=== PATIENT | female | born 1990 | race Caucasian/White ===

== ENCOUNTER 2016-03-28 13:20 | Emergency (ER) | payer OTHER ==
[2016-03-28] MEDS ORDERED: ACETAMINOPHEN 325 MG TABLET PO ONE (14:36)
--- NOTE | 2016-03-28 14:37 | ER Document Report ---
ED Medical Screen (RME) - General Chief Complaint: Urinary Problem Stated Complaint: URINARY PROBLEM Mode of Arrival: Ambulatory Information source: Patient Notes: Patient complains of burning with urination that is constant for the past 6 months. She states she has seen her primary care doctor who said she doesn't have a UTI but she still continues to hurt. She endorses associated back pain, headaches and irregular vaginal bleeding. Denies fever, chills, nausea, vomiting , diarrhea, vaginal discharge. She reports history of "Cyst in vaginal area" and feels "pressure down there" but is unsure if the cyst came back. She has tried tylenol, ibuprofen which will go away for an hour but then return. For her headache, she has tried "tension headache" medicine but it only relieves the pain for a little bit. TRAVEL OUTSIDE OF THE [place] IN LAST 30 DAYS: No - Related Data Allergies/Adverse Reactions: Coconut * [Coconut] Allergy (Intermediate, Verified 08/23/15 22:35) HIVES/MOUTH SWELLING. Sulfa (Sulfonamide Antibiotics) Allergy (Verified 08/23/15 22:35) Past Medical History - General Last Menstrual Period: irregular - Social History Frequency of alcohol use: None Drug Abuse: None Pulmonary Medical History: Reports: Hx Asthma Past Surgical History: Reports: Hx Gynecologic Surgery - ectopic , Hx Oral Surgery, Hx Tonsillectomy - - Immunizations Immunizations up to date: Yes Hx Diphtheria, Pertussis, Tetanus Vaccination: Yes Review of Systems - Review of Systems Constitutional: See HPI Gastrointestinal: See HPI Genitourinary: See HPI Physical Exam - Vital signs Vitals: Temp Pulse Resp BP Pulse Ox 98.2 F 69 20 164/58 H 100 03/28/16 13:25 03/28/16 13:25 03/28/16 13:25 03/28/16 13:25 03/28/16 13:25 - Notes Notes: General: well-appearing, comfortable sitting in exam chair. No respiratory distress. Course - Re-evaluation Re-evalutation: 03/28/16 14:36 Patient seen and examined. Ordered urinalysis and urine hcg. Given PO tylenol. - Vital Signs Vital signs: Temp Pulse Resp BP Pulse Ox 98.2 F 69 20 164/58 H 100 03/28/16 13:25 03/28/16 13:25 03/28/16 13:25 03/28/16 13:25 03/28/16 13:25
[2016-03-28 15:36] LABS: APPEARANCE,URINE SLIGHTLY-CLOUDY; BILIRUBIN,URINE NEGATIVE (NEGATIVE); GLUCOSE, URINE NEGATIVE (NEGATIVE); KETONES,URINE NEGATIVE (NEGATIVE); LEUKOCYTE ESTERASE,URINE MODERATE (NEGATIVE); NITRITE,URINE NEGATIVE (NEGATIVE); PROTEIN,URINE NEGATIVE (NEGATIVE); UROBILINOGEN,URINE NEGATIVE mg/dL (<2.0)
[2016-03-28 18:06] VITALS: BP 137/79
[2016-03-28] MEDS ORDERED: NITROFURANTOIN MONOHYD/M-CRYST 100 MG CAPSULE PO ONE (18:22)
--- NOTE | 2016-03-28 21:18 | ER Document Report ---
ED General - General Chief Complaint: Urinary Problem Stated Complaint: URINARY PROBLEM Mode of Arrival: Ambulatory TRAVEL OUTSIDE OF THE [place] IN LAST 30 DAYS: No - HPI Patient complains to provider of: dysuria vaginal cyst Notes: Patient states ongoing dysuria and vaginal cyst. Patient states vaginal cyst ongoing for the last 7 months. Dysuria lower back pain ongoing for the last few days. Patient denies fevers chills nausea vomiting. Upon my evaluation patient is resting comfortably without any acute distress. No recent antibiotics - Related Data Allergies/Adverse Reactions: Coconut * [Coconut] Allergy (Intermediate, Verified 08/23/15 22:35) HIVES/MOUTH SWELLING. Sulfa (Sulfonamide Antibiotics) Allergy (Verified 08/23/15 22:35) Past Medical History - General Information source: Patient Last Menstrual Period: irregular - Social History Smoking Status: Current Every Day Smoker Frequency of alcohol use: None Drug Abuse: None Family History: Reviewed & Not Pertinent Patient has suicidal ideation: No Patient has homicidal ideation: No Pulmonary Medical History: Reports: Hx Asthma Past Surgical History: Reports: Hx Gynecologic Surgery - ectopic , Hx Oral Surgery, Hx Tonsillectomy - - Immunizations Immunizations up to date: Yes Hx Diphtheria, Pertussis, Tetanus Vaccination: Yes Review of Systems - Review of Systems Constitutional: No symptoms reported EENT: No symptoms reported Cardiovascular: No symptoms reported Respiratory: No symptoms reported Gastrointestinal: No symptoms reported Genitourinary: Dysuria Female Genitourinary: Other - Vaginal pain Musculoskeletal: No symptoms reported Skin: No symptoms reported Hematologic/Lymphatic: No symptoms reported Neurological/Psychological: No symptoms reported -: Yes All other systems reviewed and negative Physical Exam - Vital signs Vitals: Temp Pulse Resp BP Pulse Ox 98.2 F 69 20 164/58 H 100 03/28/16 13:25 03/28/16 13:25 03/28/16 13:25 03/28/16 13:25 03/28/16 13:25 Interpretation: Normal - General General appearance: Appears well, Alert - HEENT Head: Normocephalic, Atraumatic Eyes: Normal Pupils: PERRL - Respiratory Respiratory status: No respiratory distress Chest status: Nontender Breath sounds: Normal Chest palpation: Normal - Cardiovascular Rhythm: Regular Heart sounds: Normal auscultation Murmur: No - Abdominal Inspection: Normal Distension: No distension Bowel sounds: Normal Tenderness: Nontender Organomegaly: No organomegaly - Back Back: Normal, Nontender - Extremities General upper extremity: Normal inspection, Nontender, Normal color, Normal ROM , Normal temperature General lower extremity: Normal inspection, Nontender, Normal color, Normal ROM , Normal temperature, Normal weight bearing. No: Ofelia's sign - Neurological Neuro grossly intact: Yes Cognition: Normal Orientation: AAOx4 [place] Coma Scale Eye Opening: Spontaneous Marco Coma Scale Verbal: Oriented [place] Coma Scale Motor: Obeys Commands [place] Coma Scale Total: 15 Speech: Normal Motor strength normal: LUE, RUE, LLE, RLE Sensory: Normal - Psychological Associated symptoms: Normal affect, Normal mood - Skin Skin Temperature: Warm Skin Moisture: Dry Skin Color: Normal Course - Re-evaluation Re-evalutation: 03/29/16 02:52 Patient's lab work urinalysis is signs of urinary tract infection. Patient will be given antibiotics. Initial set up patient have a pelvic exam performed to evaluate her system of her vagina however was involved in a respiratory distress case requiring multiple critical interventions. Notified by nursing staff patient request to be discharged home. Patient deferring pelvic at this time. Patient was discharged follow-up with [facility]. - Vital Signs Vital signs: Temp Pulse Resp BP Pulse Ox 98.1 F 72 18 137/79 H 100 03/28/16 18:05 03/28/16 18:05 03/28/16 18:05 03/28/16 18:05 03/28/16 18:05 - Laboratory Laboratory results interpreted by me: 03/28/16 15:00 Urine Blood SMALL H Ur Leukocyte Esterase MODERATE H Discharge - Discharge Clinical Impression: UTI (urinary tract infection) Qualifiers: Urinary tract infection type: acute cystitis Hematuria presence: without hematuria Qualified Code(s): N30.00 - Acute cystitis without hematuria Condition: Good Disposition: HOME, SELF-CARE Instructions: Urinary Tract Infection ([facility]), Nitrofurantoin ([facility]), Ob-Clinical Assistant Doctors Additional Instructions: Follow-up with your primary care physician. Return to the ER symptoms worsen. I would highly recommend following up with your [facility] for further evaluation of your cyst. Prescriptions: Ibuprofen [Motrin 600 Mg Tablet] 600 mg PO TID #30 tablet Nitrofurantoin/Nitrofuran Mac [Macrobid 100 mg Capsule] 1 tab PO BID #14 capsule Forms: Return to Work
== END 2016-03-28 22:40 | disposition home or self-care (01) ==
LOC: ER 13:20
DX: N30.00 Acute cystitis without hematuria (principal); R39.198 Other difficulties with micturition; R30.0 Dysuria; F17.210 Nicotine dependence, cigarettes, uncomplicated
CPT/HCPCS: 81001; 81025; 87086; 99283

== ENCOUNTER 2016-07-31 15:46 | Emergency (ER) | payer OTHER ==
[2016-07-31] MEDS ORDERED: ALBUTEROL SULFATE 0.083% NEB 2.5 MG/3 ML AMPUL NEB ONE (16:21)
[2016-07-31] MEDS ORDERED: PENICILLIN G BENZATHINE 1.2 MILLION UNIT/2 ML DISP.SYRIN IM ONE (17:55)
--- NOTE | 2016-07-31 17:57 | ER Document Report ---
HPI - HPI Patient complains to provider of: sore throat Pain Level: 4 Context: Patient is a 26-year-old female presents emergency Department complaining of sore throat for the past 3 days. She states that she did have a sick contact at work who've had sore throat with irritation. She denies any fevers, chills. She admits to minimal difficulty breathing with wheezing. She states she hasn 't ever been diagnosed with asthma. She admits to dysphagia but otherwise tolerating fluids and solids without any difficulty. He Tylenol at home for pain Denies any past medical problems. Does not have a primary care physician - CARDIOVASCULAR Cardiovascular: DENIES: Chest pain - REPRODUCTIVE Reproductive: DENIES: : - DERM Skin Color: Normal Past Medical History - Social History Smoking Status: Current Every Day Smoker Chew tobacco use (# tins/day): No Frequency of alcohol use: None Drug Abuse: None Family History: Reviewed & Not Pertinent Patient has suicidal ideation: No Patient has homicidal ideation: No Pulmonary Medical History: Reports: Hx Asthma Renal/ Medical History: Denies: Hx Peritoneal Dialysis Past Surgical History: Reports: Hx Gynecologic Surgery - ectopic , Hx Oral Surgery, Hx Tonsillectomy - - Immunizations Immunizations up to date: Yes Hx Diphtheria, Pertussis, Tetanus Vaccination: Yes Vertical Provider Document - CONSTITUTIONAL Agree With Documented VS: Yes Exam Limitations: No Limitations Notes: PHYSICAL EXAM GENERAL: Alert, interacts well. HEAD: Normocephalic, atraumatic. EYES: Pupils equal, round, and reactive to light. Extraocular movements intact. ENT: Uvula midline. Airway patent. No evidence of tonsillar enlargement, peritonsillar abscess, retropharyngeal abscess. Evidence of pharyngeal erythema no evidence of exudates. NECK: Full range of motion. Supple. Trachea midline. Minimal tenderness to palpation of the submandibular lymph nodes bilaterally LUNGS: Minimal expiratory wheezes. No evidence of, rales, or rhonchi. No respiratory distress. HEART: Regular rate and rhythm. No murmurs, gallops, or rubs. ABDOMEN: Soft, nondistended, nontender. No guarding, rebound, or rigidity.. Bowel sounds present in all 4 quadrants. EXTREMITIES: Moves all 4 extremities spontaneously. No edema, radial and dorsalis pedis pulses 2/4 bilaterally. No cyanosis. NEUROLOGICAL: Alert and oriented x4. Normal speech. PSYCH: Normal affect, normal mood. SKIN: Warm, dry, normal turgor. No rashes or lesions noted. - INFECTION CONTROL TRAVEL OUTSIDE OF THE [place] IN LAST 30 DAYS: No - RESPIRATORY O2 Sat by Pulse Oximetry: 98 Course - Re-evaluation Re-evalutation: 07/31/16 19:46 Patient is a 26-year-old female is hemodynamically stable, no distress afebrile. Evidence of positive strep on rapid strep test. Patient responded well to inhaled albuterol. She opted for penicillin IM and will follow-up with primary care if her symptoms do not improve. - Vital Signs Vital signs: Temp Pulse Resp BP Pulse Ox 98.6 F 88 20 153/73 H 98 07/31/16 16:04 07/31/16 16:04 07/31/16 16:04 07/31/16 16:04 07/31/16 16:04 - Diagnostic Test Radiology reviewed: Image reviewed, Reports reviewed Discharge - Discharge Clinical Impression: Strep throat Condition: Good Disposition: HOME, SELF-CARE Instructions: Strep Throat ([facility]), Penicillins ([facility]) Prescriptions: Albuterol Sulfate [Proair HFA Inhalation Aerosol 8.5 gm MDI] 2 puff IH Q4H PRN # 1 mdi PRN Reason: Forms: Elevated Blood Pressure, Return to Work Referrals: HIPOLITO KABA MD [NO LOCAL MD] - Follow up as needed [facility] [NO [facility]AL MD] - Follow up as needed
[2016-07-31 18:44] VITALS: BP 131/88
== END 2016-07-31 18:46 | disposition home or self-care (01) ==
LOC: ER 15:46
DX: J02.0 Streptococcal pharyngitis (principal); R06.00 Dyspnea, unspecified; R06.2 Wheezing; R13.10 Dysphagia, unspecified; F17.200 Nicotine dependence, unspecified, uncomplicated
CPT/HCPCS: 99283; 87880; 71020; 70360; J0561

== ENCOUNTER 2017-08-07 12:09 | Emergency (ER) | payer MEDICAID ==
[2017-08-07 12:22] VITALS: BP 140/68
[2017-08-07] MEDS ORDERED: CEFTRIAXONE INJ 250 MG VIAL IM ONE (12:49)
[2017-08-07] MEDS ORDERED: AZITHROMYCIN 250 MG TABLET PO ONE (12:49)
[2017-08-07] MEDS ORDERED: LIDOCAINE 1% INJ-PF (10 MG/ML) 30 ML SDV INJ ONE (12:49)
--- NOTE | 2017-08-07 12:54 | ER Document Report ---
ED GI/ - General Chief Complaint: STD Exposure Stated Complaint: STD/ CHECK Time Seen by Provider: 08/07/17 12:39 Mode of Arrival: Ambulatory Information source: Patient Notes: 27-year-old female presents to ED for TD exposure and concerned that she is . She denies any vaginal discharge any symptoms but states her last menstrual period was June 30. TRAVEL OUTSIDE OF THE [place] IN LAST 30 DAYS: No - HPI Patient complains to provider of: Missed/Late menses, Other - std exposure and Quality of pain: No pain Pain Level: Denies Vaginal bleeding (Compared to normal period): None LMP: June 30, 2017 Sexual history: Active, Unprotected intercourse, STD exposure Associated symptoms: None Exacerbated by: Denies Relieved by: Denies Similar symptoms previously: No Recently seen / treated by doctor: No - Related Data Allergies/Adverse Reactions: Coconut * [Coconut] Allergy (Intermediate, Verified 08/07/17 12:10) HIVES/MOUTH SWELLING. Sulfa (Sulfonamide Antibiotics) Allergy (Verified 08/07/17 12:10) Past Medical History - General Information source: Patient - Social History Smoking Status: Current Every Day Smoker Cigarette use (# per day): Yes - Pack per day Chew tobacco use (# tins/day): No Smoking Education Provided: Yes - 4 minutes Frequency of alcohol use: None Drug Abuse: None Occupation: [employer] Lives with: Alone Family History: Reviewed & Not Pertinent Patient has suicidal ideation: No Patient has homicidal ideation: No - Past Medical History Cardiac Medical History: Reports: None Pulmonary Medical History: Reports: Hx Asthma EENT Medical History: Reports: None Neurological Medical History: Reports: None Endocrine Medical History: Reports: None Renal/ Medical History: Reports: Hx Ectopic Malignancy Medical History: Reports: None GI Medical History: Reports: None Musculoskeltal Medical History: Reports None, Reports Hx Arthritis, Reports Hx Musculoskeletal Trauma Skin Medical History: Reports None Psychiatric Medical History: Reports: None Traumatic Medical History: Reports: Hx Fractures - Arm Infectious Medical History: Reports: None Past Surgical History: Reports: Hx Oral Surgery, Hx Tonsillectomy - 2-2009 - Immunizations Immunizations up to date: Yes Hx Diphtheria, Pertussis, Tetanus Vaccination: Yes Review of Systems - Review of Systems Constitutional: No symptoms reported EENT: No symptoms reported Cardiovascular: No symptoms reported Respiratory: No symptoms reported Gastrointestinal: No symptoms reported Genitourinary: No symptoms reported Female Genitourinary: No symptoms reported Musculoskeletal: No symptoms reported Skin: No symptoms reported Hematologic/Lymphatic: No symptoms reported Neurological/Psychological: No symptoms reported Physical Exam - Vital signs Vitals: Temp Pulse Resp BP Pulse Ox 99.0 F 68 20 140/68 H 97 08/07/17 12:20 08/07/17 12:20 08/07/17 12:20 08/07/17 12:20 08/07/17 12:20 Interpretation: Normal - General General appearance: Appears well, Alert - HEENT Head: Normocephalic, Atraumatic Eyes: Normal Pupils: PERRL - Respiratory Respiratory status: No respiratory distress Chest status: Nontender Breath sounds: Normal Chest palpation: Normal - Cardiovascular Rhythm: Regular Heart sounds: Normal auscultation Murmur: No - Abdominal Inspection: Normal Distension: No distension Bowel sounds: Normal Tenderness: Nontender Organomegaly: No organomegaly - Back Back: Normal, Nontender - Extremities General upper extremity: Normal inspection, Nontender, Normal color, Normal ROM , Normal temperature General lower extremity: Normal inspection, Nontender, Normal color, Normal ROM , Normal temperature, Normal weight bearing. No: Ofelia's sign - Neurological Neuro grossly intact: Yes Cognition: Normal Orientation: AAOx4 Marco Coma Scale Eye Opening: Spontaneous [place] Coma Scale Verbal: Oriented Marco Coma Scale Motor: Obeys Commands [place] Coma Scale Total: 15 Speech: Normal Motor strength normal: LUE, RUE, LLE, RLE Sensory: Normal - Psychological Associated symptoms: Normal affect, Normal mood - Skin Skin Temperature: Warm Skin Moisture: Dry Skin Color: Normal Course - Vital Signs Vital signs: Temp Pulse Resp BP Pulse Ox 99.0 F 68 20 140/68 H 97 08/07/17 12:20 08/07/17 12:20 08/07/17 12:20 08/07/17 12:20 08/07/17 12:20 - Laboratory Laboratory results interpreted by me: 08/07/17 12:45 N.gonorrhoeae DNA (PCR) DETECTED H Discharge - Discharge Clinical Impression: STD exposure HTN (hypertension) Qualifiers: Hypertension type: unspecified Qualified Code(s): I10 - Essential (primary) hypertension Condition: Stable Disposition: HOME, SELF-CARE Instructions: Family Physicians / Practices Additional Instructions: You were seen today for exposure to STDs. You have been treated with Rocephin IM and azithromycin by mouth. You can call in 2 hours or tomorrow at [phone] for your culture results test was negative. CEPHALOSPORINS: An antibiotic of the cephalosporin class has been prescribed. This type of antibiotic covers a wide variety of infections, including those of the skin, lungs, middle ear, and urinary tract. This antibiotic is somewhat similar to the penicillin family. In rare cases , a person who is allergic to penicillin will also be allergic to this medication. If you have had a severe allergic reaction to penicillin, and have not taken this antibiotic since that time, notify your doctor. Antibiotics which cover many germs ("broad spectrum" antibiotics) are more likely to cause diarrhea or "yeast" infections. Women prone to vaginal yeast problems may suffer an attack after taking this antibiotic. In infants, oral thrush (white spots "stuck" on the cheek) or yeast diaper rash may result. See your doctor if these problems occur. Call the doctor at once if you develop hives, itching, shortness of breath , or lightheadedness. AZITHROMYCIN: Azithromycin (Zithromax) is a broad spectrum antibiotic in the same class as erythromycin. It can treat a variety of bacterial infections, but is most frequently used for respiratory infections. Azithromycin is extremely long-lasting. It accumulates in body tissues and continues to kill bacteria for many days. In order to improve absorption, Azithromycin should be taken at least one hour before or two hours after a meal. It does not have the same strong tendency to upset the stomach as erythromycin and is usually very well tolerated. Patients who have had a rash or other true allergic reactions to erythromycin should not take this medication. Call if you develop gastrointestinal distress, severe diarrhea, rash, hives, itching, or shortness of breath. FOLLOW-UP CARE: If you have been referred to a physician for follow-up care, call the physician s office for an appointment as you were instructed or within the next two days. If you experience worsening or a significant change in your symptoms, notify the physician immediately or return to the Emergency Department at any time for re-evaluation. Forms: Elevated Blood Pressure
[2017-08-07] MEDS ORDERED: AZITHROMYCIN 250 MG TABLET ONE (13:03)
[2017-08-07 13:06] LABS: BACTERIA (WET MOUNT) 3+ BACTERIA SEEN; RBCS (WET MOUNT) FEW RBCS SEEN; T.VAGINALIS (WET MOUNT) NO TRICHOMONAS SEEN; WBCS (WET MOUNT) FEW WBCS SEEN; YEAST (WET MOUNT) NO YEAST SEEN
[2017-08-07 14:31] LABS: CHLAM PCR NOT DETECTED (NOT DETECT); GON PCR DETECTED (NOT DETECT)
== END 2017-08-07 13:32 | disposition home or self-care (01) ==
LOC: ER 12:09
DX: Z20.2 Contact with and (suspected) exposure to infections with a predominantly sexual mode of transmission (principal); Z32.02 Encounter for pregnancy test, result negative; I10 Essential (primary) hypertension; J45.909 Unspecified asthma, uncomplicated; F17.210 Nicotine dependence, cigarettes, uncomplicated; Z71.6 Tobacco abuse counseling; Z91.018 Allergy to other foods; Z88.2 Allergy status to sulfonamides
CPT/HCPCS: 99406; 99283; 96372; 87086; 87210; 81025; 87088; 87186; 87491; 87591; Q0144; J3490; J0696

== ENCOUNTER 2017-08-21 15:58 | Emergency (ER) | payer SELFPAY ==
[2017-08-21] MEDS ORDERED: IPRATROPIUM/ALBUTEROL 0.5-2.5 MG/3 ML AMPUL NEB ONE (16:51)
[2017-08-21] MEDS ORDERED: NAPROXEN 250 MG TABLET PO ONE (16:51)
[2017-08-21] MEDS ORDERED: PREDNISONE 20 MG TABLET PO ONE (16:51)
--- NOTE | 2017-08-21 16:51 | ER Document Report ---
ED General - General Chief Complaint: Flank Pain Stated Complaint: DIFFICULTY BREATHING Time Seen by Provider: 08/21/17 16:38 Mode of Arrival: Ambulatory Information source: Patient Notes: 27-year-old female history of asthma smoker who states that she has been wheezing daily for the past few months presents with complaints of wheezing flank pain patient notes she fell mechanical since then she has been having some back pain, most pains on her flank only she fell forward striking her abdomen and catching herself with her hands TRAVEL OUTSIDE OF THE [place] IN LAST 30 DAYS: No - HPI Onset: Last week Onset/Duration: Persistent Quality of pain: Achy Severity: Mild Pain Level: 1 Associated symptoms: Body/muscle aches, Shortness of breath Exacerbated by: Movement, Deep breathing Relieved by: Denies Similar symptoms previously: No Recently seen / treated by doctor: No Notes: Patient notes her back hurts with range of motion deep breathing which causes her not to take a deep breath - Related Data Allergies/Adverse Reactions: Coconut * [Coconut] Allergy (Intermediate, Verified 08/21/17 15:59) HIVES/MOUTH SWELLING. Sulfa (Sulfonamide Antibiotics) Allergy (Verified 08/21/17 15:59) Past Medical History - Social History Smoking Status: Current Every Day Smoker Cigarette use (# per day): Yes Chew tobacco use (# tins/day): No Smoking Education Provided: No Frequency of alcohol use: None Drug Abuse: None Family History: Reviewed & Not Pertinent Patient has suicidal ideation: No Patient has homicidal ideation: No Pulmonary Medical History: Reports: Hx Asthma Renal/ Medical History: Reports: Hx Ectopic . Denies: Hx Peritoneal Dialysis Musculoskeltal Medical History: Reports Hx Arthritis, Reports Hx Musculoskeletal Trauma Traumatic Medical History: Reports: Hx Fractures - Arm Past Surgical History: Reports: Hx Gynecologic Surgery - etopic , Hx Oral Surgery, Hx Tonsillectomy - - Immunizations Immunizations up to date: Yes Hx Diphtheria, Pertussis, Tetanus Vaccination: Yes Review of Systems - Review of Systems Notes: REVIEW OF SYSTEMS: CONSTITUTIONAL : Denies fever, chills, or sweats. Denies recent illness. EENT: Denies eye, ear, throat, or mouth pain or symptoms. Denies nasal or sinus congestion or discharge. Denies throat, tongue, or mouth swelling or difficulty swallowing. CARDIOVASCULAR: Denies chest pain. Denies palpitations or racing or irregular heart beat. Denies ankle edema. RESPIRATORY: Wheezing shortness of breath GASTROINTESTINAL: Denies abdominal pain or distention. Denies nausea, vomiting , or diarrhea. Denies blood in vomitus, stools, or per rectum. Denies black, tarry stools. Denies constipation. GENITOURINARY: Denies difficulty urinating, painful urination, burning, frequency, blood in urine, or discharge. FEMALE GENITOURINARY: Denies vaginal bleeding, heavy or abnormal periods, irregular periods. Denies vaginal discharge or odor. MUSCULOSKELETAL: Denies back or neck pain or stiffness. Denies joint pain or swelling. SKIN: Denies rash, lesions or sores. HEMATOLOGIC : Denies easy bruising or bleeding. LYMPHATIC: Denies swollen, enlarged glands. NEUROLOGICAL: Denies confusion or altered mental status. Denies passing out or loss of consciousness. Denies dizziness or lightheadedness. Denies headache. Denies weakness or paralysis or loss of use of either side. Denies problems with gait or speech. Denies sensory loss, numbness, or tingling. Denies seizures. PSYCHIATRIC: Denies anxiety or stress. Denies depression, suicidal ideation, or homicidal ideation. ALL OTHER SYSTEMS REVIEWED AND NEGATIVE. PHYSICAL EXAMINATION: GENERAL: Morbidly obese female no acute distress HEAD: Atraumatic, normocephalic. EYES: Pupils equal round and reactive to light, extraocular movements intact, conjunctiva are normal. ENT: Nares patent, oropharynx clear without exudates. Moist mucous membranes. NECK: Normal range of motion, supple without lymphadenopathy LUNGS: Expiratory expiratory wheezing around all hester. HEART: Regular rate and rhythm without murmurs ABDOMEN: Soft, nontender, nondistended abdomen. No guarding, no rebound. No masses appreciated. Left CVA tenderness on palpation Female : deferred Musculoskeletal: Normal range of motion, no pitting or edema. No cyanosis. NEUROLOGICAL: Cranial nerves grossly intact. Normal speech, normal gait. Normal sensory, motor exams PSYCH: Normal mood, normal affect. SKIN: Warm, Dry, normal turgor, no rashes or lesions noted. Dictation was performed using [employer] voice recognition software Physical Exam - Vital signs Vitals: Temp Pulse Resp BP Pulse Ox 99.2 F 73 14 138/89 H 98 08/21/17 16:05 08/21/17 16:05 08/21/17 16:05 08/21/17 16:05 08/21/17 16:05 Course - Re-evaluation Re-evalutation: 08/21/17 16:58 Patient's presentation is most consistent with a musculoskeletal pain, patient overall looks well is in no distress he will be given breathing treatments and steroids for her back no history of diabetes 08/21/17 18:21 Patient notes her back has improved, states her son has not improved and she does not think it is musculoskeletal, renal ct ordered 08/21/17 19:47 Patient's urinalysis does note some bacteria, CT negative, will treat for possible musculoskeletal pain After performing a Medical Screening Examination, I estimate there is LOW risk for ACUTE APPENDICITIS, BOWEL OBSTRUCTION, ACUTE CHOLECYSTITIS, PERFORATED DIVERTICULITIS, INCARCERATED HERNIA, PANCREATITIS, PELVIC INFLAMMATORY DISEASE, PERFORATED ULCER, ECTOPIC , or TUBO-OVARIAN ABSCESS, thus I consider the discharge disposition reasonable. Also, there is no evidence or peritonitis , sepsis, or toxicity. I have reevaluated this patient multiple times and no significant life threatening changes are noted. The patient and I have discussed the diagnosis and risks, and we agree with discharging home with close follow-up with the understanding that symptoms and presentations can change. We also discussed returning to the Emergency Department immediately if new or worsening symptoms occur. We have discussed the symptoms which are most concerning (e.g., bloody stool, fever, changing or worsening pain, vomiting) that necessitate immediate return. - Vital Signs Vital signs: Temp Pulse Resp BP Pulse Ox 97.9 F 64 21 H 154/74 H 98 08/21/17 19:44 08/21/17 19:44 08/21/17 19:44 08/21/17 19:44 08/21/17 19:44 - Laboratory Laboratory results interpreted by me: 08/21/17 18:27 Urine Protein 30 H Urine Ketones TRACE H Urine Blood MODERATE H Urine Urobilinogen 4.0 H Ur Leukocyte Esterase LARGE H - Diagnostic Test Radiology reviewed: Image reviewed - CT renal stone study notes no acute abnormality, Reports reviewed Discharge - Discharge Clinical Impression: Pyelonephritis, Flank pain Condition: Stable Disposition: HOME, SELF-CARE Instructions: Pyelonephritis ([facility]) Additional Instructions: Follow up with your physician tomorrow for further care or return to the ED IMMEDIATELY if symptoms worsen or new concerns occur. If you cannot afford to follow up with your primary care physician a list of low cost clinics have been provided at the end of your discharge papers as well. Prescriptions: Ciprofloxacin HCl [Cipro 500 mg Tablet] 500 mg PO BID #20 tablet Naproxen 500 mg PO BID #20 tablet
[2017-08-21 18:40] LABS: AMORPHOUS SEDIMENT,URINE TRACE /HPF; APPEARANCE,URINE CLOUDY; BILIRUBIN,URINE NEGATIVE (NEGATIVE); COLOR,URINE YELLOW; GLUCOSE, URINE NEGATIVE (NEGATIVE); KETONES,URINE TRACE mg/dL (NEGATIVE); LEUKOCYTE ESTERASE,URINE LARGE (NEGATIVE); NITRITE,URINE NEGATIVE (NEGATIVE); PROTEIN,URINE 30 mg/dL (NEGATIVE); URINE SPECIFIC GRAVITY 1.031
--- NOTE | 2017-08-21 19:14 | RADIOLOGY REPORT (SQ) ---
EXAM DESCRIPTION: CT LTD RENAL STONE PROTOCOL ON COMPLETED DATE/TIME: 08/21/2017 7:02 pm REASON FOR STUDY: left flank pain COMPARISON: None. TECHNIQUE: CT scan of the abdomen and pelvis performed without intravenous or oral contrast. Images reviewed with lung, soft tissue, and bone windows. Reconstructed coronal and sagittal MPR images revi ewed. All images stored on PACS. All CT scanners at this facility use dose modulation, iterative reconstruction, and/or weight based d osing when appropriate to reduce radiation dose to as low as reasonably achievable (ALARA). [facility]: Dose Right [facility]: CareDose [facility]: Dose Right [facility]: Teradose 4D [facility]: [employer] RADIATION DOSE: CT Rad equipment meets quality standard of care and radiation dose reduction techniq ues were employed. CTDIvol: 27.2 mGy. DLP: 1759 mGy-cm.mGy. LIMITATIONS: None. FINDINGS: LOWER CHEST: No significant findings. No nodules or infiltrates. NON-CONTRASTED LIVER, SPLEEN, ADRENALS: Evaluation limited by lack of IV contrast. No identified sign ificant masses. PANCREAS: No masses. No peripancreatic inflammatory changes. GALLBLADDER: No identified stones by CT criteria. No inflammatory changes to suggest cholecystitis. RIGHT KIDNEY AND URETER: No suspicious masses. Assessment limited by lack of IV contrast. No signif icant calcifications. No hydronephrosis or hydroureter. LEFT KIDNEY AND URETER: No suspicious masses. Assessment limited by lack of IV contrast. No signifi cant calcifications. No hydronephrosis or hydroureter. AORTA AND RETROPERITONEUM: No aneurysm. No retroperitoneal masses or adenopathy. BOWEL AND PERITONEAL CAVITY: No obvious masses or inflammatory changes. No free fluid. APPENDIX: Normal. PELVIS, BLADDER, AND ABDOMINAL WALL:No abnormal masses. No free fluid. Bladder normal. BONES: No significant findings. OTHER: No other significant finding. IMPRESSION: NO SIGNIFICANT OR ACUTE PROCESS IN THE ABDOMEN OR PELVIS. COMMENT: Quality ID # [id number]: Final reports with documentation of one or more dose reduction techniques (e.g., Automated exposure control, adjustment of the mA and/or kV according to patient size, use of iterative reconstruction technique) TECHNICAL DOCUMENTATION: JOB ID: [id number] [employer]- All Rights Reserved Reading location - IP/workstation name: [email or web address]
[2017-08-21 19:46] VITALS: BP 154/74
== END 2017-08-21 19:54 | disposition home or self-care (01) ==
LOC: ER 15:58
DX: N12 Tubulo-interstitial nephritis, not specified as acute or chronic (principal); R10.9 Unspecified abdominal pain; R06.9 Unspecified abnormalities of breathing; M79.1 Myalgia; R06.02 Shortness of breath; F17.210 Nicotine dependence, cigarettes, uncomplicated; J45.909 Unspecified asthma, uncomplicated
CPT/HCPCS: 94640; 99285; 81025; 81001; 76380; J7512; J7620

== ENCOUNTER 2017-12-10 21:51 | Emergency (ER) | payer SELFPAY ==
[2017-12-11] MEDS ORDERED: IBUPROFEN 600 MG TABLET PO ONE (02:14)
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
[2017-12-11 04:56] VITALS: BP 132/80
--- NOTE | 2017-12-11 07:47 | RADIOLOGY REPORT (SQ) ---
Left ankle three view on 12/11/2017 at 3:19 AM CLINICAL INDICATION: Ankle pain after fall COMPARISON: None FINDINGS: Plantar calcaneal spur is noted. Mild soft tissue swelling is noted around the ankle. The ankle mortise is intact. There are no fractures. Visualized joints are well aligned. IMPRESSION: No acute bony abnormality.
--- NOTE | 2017-12-11 07:47 | RADIOLOGY REPORT (SQ) ---
EXAM DESCRIPTION: 3 views of the left foot December 11, 2017 CLINICAL HISTORY: 27 years, Female, fall, pain COMPARISON: None. FINDINGS: There is no acute fracture or dislocation. The bony alignment is normal. There is calcaneal enthesopathy at the plantar fascia insertion. There is no focal soft tissue swelling or joint effusion. The tarsal, metatarsal, and phalangeal bones are normal in appearance. The intertarsal, tarsometatarsal, metatarsophalangeal, and interphalangeal joints are grossly normal. IMPRESSION: No acute fracture or dislocation.
== END 2017-12-11 05:17 | disposition home or self-care (01) ==
LOC: ER 21:51
DX: S99.912A Unspecified injury of left ankle, initial encounter (principal); S99.922A Unspecified injury of left foot, initial encounter; W01.0XXA Fall on same level from slipping, tripping and stumbling without subsequent striking against object, initial encounter; Y92.009 Unspecified place in unspecified non-institutional (private) residence as the place of occurrence of the external cause; E66.01 Morbid (severe) obesity due to excess calories; F17.200 Nicotine dependence, unspecified, uncomplicated
CPT/HCPCS: 99283

== ENCOUNTER 2018-04-20 12:15 | Emergency (ER) | payer SELFPAY ==
[2018-04-20 12:22] VITALS: BP 144/88
[2018-04-20] MEDS ORDERED: LIDOCAINE 5% (700 MG) TRANSDERMAL ADH..PATCH TP ONE (12:31)
[2018-04-20] MEDS ORDERED: DIPHENHYDRAMINE HCL 50 MG CAPSULE PO ONE (12:31)
[2018-04-20] MEDS ORDERED: FAMOTIDINE 20 MG TABLET PO ONE (12:31)
[2018-04-20] MEDS ORDERED: ACETAMINOPHEN 325 MG TABLET PO ONE (12:31)
[2018-04-20] MEDS ORDERED: PREDNISONE 20 MG TABLET PO ONE (12:31)
--- NOTE | 2018-04-20 12:32 | ER Document Report ---
HPI - HPI Time Seen by Provider: 04/20/18 12:23 Onset/Duration: Persistent Quality of pain: Achy Pain Level: 4 Context: Patient presents with dysuria for the past month. Patient denies any concerns about possible sexually transmitted infection. Patient denies any vaginal bleeding or discharge. Patient also complains of low back pain that she developed after reaching into the refrigerator yesterday. Patient complains of persistent low back pain. Patient also is concerned that she may have an allergic reaction either to coconut that she accidentally ate in some chocolate yesterday or possibly to a new laundry detergent that she use. Patient complains of skin rash with pruritus for the past 3 days. Patient denies any difficulty breathing, difficulty swallowing, or facial swelling. Associated Symptoms: Other - Low back pain, dysuria, skin rash. denies: Chest pain, Nonproductive cough, Productive cough, Vomiting, Shortness of breath Exacerbated by: Movement Relieved by: Remaining still Similar symptoms previously: Yes - UTI Recently seen / treated by doctor: No - ROS ROS below otherwise negative: Yes Systems Reviewed and Negative: Yes All other systems reviewed and negative - EENT EENT: DENIES: Sore Throat, Congestion - CARDIOVASCULAR Cardiovascular: DENIES: Chest pain - RESPIRATORY Respiratory: DENIES: Coughing - GASTROINTESTINAL Gastrointestinal: DENIES: Nausea, Patient vomiting - URINARY Urinary: REPORTS: Dysuria - REPRODUCTIVE Reproductive: DENIES: : - MUSCULOSKELETAL Musculoskeletal: REPORTS: Back Pain. DENIES: Extremity pain - DERM Skin Color: Normal Skin Problems: Rash Past Medical History - General Information source: Patient - Social History Smoking Status: Current Every Day Smoker Smoking Education Provided: Yes Frequency of alcohol use: None Drug Abuse: None Occupation: fresh food manager Family History: Reviewed & Not Pertinent Pulmonary Medical History: Reports: Hx Asthma Renal/ Medical History: Reports: Hx Ectopic . Denies: Hx Peritoneal Dialysis Musculoskeletal Medical History: Reports Hx Arthritis, Reports Hx Musculoskeletal Trauma Traumatic Medical History: Reports: Hx Fractures - Arm Past Surgical History: Reports: Hx Gynecologic Surgery - etopic , Hx Oral Surgery, Hx Tonsillectomy - - Immunizations Immunizations up to date: Yes Hx Diphtheria, Pertussis, Tetanus Vaccination: Yes Vertical Provider Document - CONSTITUTIONAL Agree With Documented VS: Yes Exam Limitations: No Limitations General Appearance: WD/WN, No Apparent Distress - INFECTION CONTROL TRAVEL OUTSIDE OF THE [place] IN LAST 30 DAYS: No - HEENT HEENT: Atraumatic, Normal ENT Exam, Normocephalic Notes: No angioedema, no potential airway compromise - NECK Neck: Normal Inspection, Supple. negative: Lymphadenopathy-Left, Lymphadenopathy-Right - RESPIRATORY Respiratory: Breath Sounds Normal, No Respiratory Distress, Chest Non-Tender - CARDIOVASCULAR Cardiovascular: Regular Rate, Regular Rhythm, No Murmur - GI/ABDOMEN Gastrointestinal: Abdomen Soft - BACK Back: Normal Inspection. negative: CVA Tenderness-Right, CVA Tenderness-Left Notes: Lumbar paraspinal tenderness - MUSCULOSKELETAL/EXTREMETIES Musculoskeletal/Extremeties: MAMARILEE CASEY - NEURO Level of Consciousness: Awake, Alert, Appropriate Motor/Sensory: No Motor Deficit - DERM Integumentary: Warm, Dry, Rash - Scattered erythematous macular rash to trunk and extremities Course - Re-evaluation Re-evalutation: 04/20/18 Patient with dysuria symptoms for the past month, no concern for pyelonephritis at this time. Patient has reproducible lumbar paraspinal tenderness, no CVA tenderness. The patient presents with low back pain without signs of spinal cord compression, cauda equina syndrome, infection, aneurysm, or other serious etiology. The patient is neurologically intact. Given the extremely risk of these diagnoses further testing and evaluation for these possibilities does not appear to be indicated at this time. Patient has been instructed to return if the symptoms worsen or change in any way. - Vital Signs Vital signs: Temp Pulse Resp BP Pulse Ox 98.1 F 84 20 144/88 H 97 04/20/18 12:20 04/20/18 12:20 04/20/18 12:20 04/20/18 12:20 04/20/18 12:20 - Laboratory Laboratory results interpreted by me: 04/20/18 13:55 Labs- Entire Visit 04/20/18 12:51 Urine Color YELLOW Urine Appearance SLIGHTLY-CLOUDY Urine pH 5.0 Ur Specific [place] 1.019 Urine Protein NEGATIVE Urine Glucose (UA) NEGATIVE Urine Ketones TRACE H Urine Blood NEGATIVE Urine Nitrite NEGATIVE Urine Bilirubin NEGATIVE Urine Urobilinogen NEGATIVE Ur Leukocyte Esterase TRACE H Urine WBC (Auto) 14 Urine RBC (Auto) 2 Squamous Epi Cells Auto 8 Urine Mucus (Auto) OCC Urine Ascorbic Acid NEGATIVE Urine HCG, Qual NEGATIVE Discharge - Discharge Clinical Impression: Allergic reaction Qualifiers: Encounter type: initial encounter Qualified Code(s): T78.40XA - Allergy, unspecified, initial encounter Low back pain Qualifiers: Chronicity: acute Back pain laterality: bilateral Sciatica presence: without sciatica Qualified Code(s): M54.5 - Low back pain UTI (urinary tract infection) Qualifiers: Urinary tract infection type: site unspecified Hematuria presence: without hematuria Qualified Code(s): N39.0 - Urinary tract infection, site not specified Condition: Stable Disposition: HOME, SELF-CARE Instructions: Acute Allergic Reaction ([facility]), Cephalexin ([facility]), Low Back Pain ([facility]), Steroid Medication, Urinary Tract Infection ([facility]) Additional Instructions: Return immediately for any new or worsening symptoms Followup with your primary care provider, call tomorrow to make a followup appointment Prescriptions: Cephalexin Monohydrate [Keflex 500 mg Capsule] 500 mg PO BID 5 Days capsule Cyclobenzaprine HCl [Flexeril 10 Mg Tablet] 10 mg PO TID #15 tablet Famotidine [Pepcid 20 mg Tablet] 20 mg PO BID #12 tablet Prednisone [Deltasone 10 mg Tablet] 10 mg PO ASDIR PRN #21 tablet PRN Reason: Forms: Return to Work Referrals: [facility] [Provider Group] - Follow up as needed [facility] [Provider Group] - Follow up as needed
[2018-04-20 13:11] LABS: APPEARANCE,URINE SLIGHTLY-CLOUDY; BILIRUBIN,URINE NEGATIVE (NEGATIVE); COLOR,URINE YELLOW; GLUCOSE, URINE NEGATIVE (NEGATIVE); KETONES,URINE TRACE mg/dL (NEGATIVE); LEUKOCYTE ESTERASE,URINE TRACE (NEGATIVE); NITRITE,URINE NEGATIVE (NEGATIVE); PROTEIN,URINE NEGATIVE (NEGATIVE); URINE SPECIFIC GRAVITY 1.019; UROBILINOGEN,URINE NEGATIVE mg/dL (<2.0)
[2018-04-20] MEDS ORDERED: CEPHALEXIN 500 MG CAPSULE PO ONE (13:55)
[2018-04-20] MEDS ORDERED: HYDROCODONE/ACETAMINOPHEN 5-325 MG TABLET PO ONE (13:59)
[2018-04-20 14:38] LABS: CHLAM PCR NOT DETECTED (NOT DETECT); GON PCR NOT DETECTED (NOT DETECT)
== END 2018-04-20 14:30 | disposition home or self-care (01) ==
LOC: ER 12:15
DX: T78.40XA Allergy, unspecified, initial encounter (principal); N39.0 Urinary tract infection, site not specified; M54.5 Low back pain; R30.0 Dysuria; R21 Rash and other nonspecific skin eruption; F17.200 Nicotine dependence, unspecified, uncomplicated; J45.909 Unspecified asthma, uncomplicated
CPT/HCPCS: 99283; 87086; 81025; 81001; 87491; 87591; J7512

== ENCOUNTER 2018-12-15 09:54 | Emergency (ER) | payer SELFPAY ==
--- NOTE | 2018-12-15 10:48 | ER Document Report ---
HPI - HPI Time Seen by Provider: 12/15/18 10:11 Pain Level: 4 Notes: Patient is an otherwise healthy 28-year-old female presenting with concern for possible urinary tract infection or STDs. Patient reports she had sexual intercourse last night with a new partner. She states he did wear a condom but it slipped off. She reports this morning she woke up with dysuria. She denies any pelvic pain or abdominal pain. She denies any abnormal vaginal discharge. She also reports on her way into the hospital she got out of her car and twisted her right ankle. - CONSTITUTIONAL Constitutional: DENIES: Fever, Chills - REPRODUCTIVE Reproductive: DENIES: : - MUSCULOSKELETAL Musculoskeletal: REPORTS: Extremity pain Past Medical History - General Information source: Patient - Social History Smoking Status: Current Every Day Smoker Frequency of alcohol use: None Drug Abuse: None Family History: Reviewed & Not Pertinent Patient has suicidal ideation: No Patient has homicidal ideation: No Pulmonary Medical History: Reports: Hx Asthma Renal/ Medical History: Reports: Hx Ectopic . Denies: Hx Peritoneal Dialysis Musculoskeletal Medical History: Reports Hx Arthritis, Reports Hx Musculoskeletal Trauma Traumatic Medical History: Reports: Hx Fractures - Arm Past Surgical History: Reports: Hx Gynecologic Surgery - etopic , Hx Oral Surgery, Hx Tonsillectomy - - Immunizations Immunizations up to date: Yes Hx Diphtheria, Pertussis, Tetanus Vaccination: Yes Vertical Provider Document - CONSTITUTIONAL Notes: PHYSICAL EXAMINATION: GENERAL: Well-appearing, well-nourished and in no acute distress. HEAD: Atraumatic, normocephalic. EYES: Pupils equal round extraocular movements intact, conjunctiva are normal. ENT: Nares patent NECK: Normal range of motion LUNGS: No respiratory distress Abdomen: Abdomen soft, nontender without guarding or rebound. No CVA tenderness. Musculoskeletal: Normal range of motion NEUROLOGICAL: Normal speech, normal gait. PSYCH: Normal mood, normal affect. SKIN: Warm, Dry, normal turgor, no rashes or lesions noted. - INFECTION CONTROL TRAVEL OUTSIDE OF THE [place] IN LAST 30 DAYS: No Course - Re-evaluation Re-evalutation: Urinalysis consistent with UTI. Patient will be started on appropriate antibiotics for this. Chlamydia and gonorrhea pending. Patient will be given prophylactic treatment for both of these as she is requesting. Patient given ED return precautions. Patient encouraged to follow-up with health department. The patient's emergency department workup and current diagnosis were explained to the patient and or family. Follow-up instructions were provided. Medications if prescribed were discussed. Instructions for when to return to the emergency department including specific worrisome symptoms were discussed with the patient and/or family. - Vital Signs Vital signs: Temp Pulse Resp BP Pulse Ox 98 F 73 20 137/68 H 96 12/15/18 10:07 12/15/18 10:12/15/18 10:07 12/15/18 10:12/15/18 10:07 Discharge - Discharge Clinical Impression: Dysuria, Cystitis Condition: Stable Disposition: HOME, SELF-CARE Additional Instructions: Your urine shows findings consistent with a urinary tract infection. Please take all the antibiotics as directed even if your symptoms have improved. Please follow-up with your primary care physician as needed. Return to emergency room if you develop fever >101F, persistent vomiting, become lethargic, have severe pain in your sides, or any other symptoms that are concerning to you. You have also been treated prophylactically for possible exposure to chlamydia or gonorrhea. Please refrain from any unprotected sexual intercourse for 7 to 10 days. Our culture nurse will notify you if your testing was positive. Prescriptions: Cephalexin [Cephalexin 500 MG Tablet] 1 tab PO BID #14 tablet
--- NOTE | 2018-12-15 11:16 | RADIOLOGY REPORT (SQ) ---
EXAM DESCRIPTION: ANKLE RIGHT COMPLETE COMPLETED DATE/TIME: 12/15/2018 10:55 am REASON FOR STUDY: Rolled ankle COMPARISON: 2012. NUMBER OF VIEWS: Three views. TECHNIQUE: AP, lateral, and oblique radiographic images acquired of the right ankle. LIMITATIONS: None. FINDINGS: MINERALIZATION: Normal. BONES: Plantar calcaneal bone spur. Otherwise, no acute fracture or bony abnormality seen. JOINTS: No effusions. SOFT TISSUES: No soft tissue swelling. No foreign body. OTHER: No other significant finding. IMPRESSION: Plantar calcaneal bone spur. Otherwise, normal right ankle. TECHNICAL DOCUMENTATION: JOB ID: [id number] [id number] [employer]- All Rights Reserved Reading location - IP/workstation name: [email or web address]
[2018-12-15 11:17] LABS: EPITHELIALS (WET MOUNT) 3+ EPITHELIALS SEEN; RBCS (WET MOUNT) 4+ RBCS SEEN; T.VAGINALIS (WET MOUNT) NO TRICHOMONAS SEEN; WBCS (WET MOUNT) FEW WBCS SEEN; YEAST (WET MOUNT) NO YEAST SEEN
[2018-12-15 11:21] LABS: APPEARANCE,URINE SLIGHTLY-CLOUDY; BILIRUBIN,URINE NEGATIVE (NEGATIVE); COLOR,URINE AMBER; GLUCOSE, URINE NEGATIVE (NEGATIVE); KETONES,URINE NEGATIVE (NEGATIVE); LEUKOCYTE ESTERASE,URINE TRACE (NEGATIVE); NITRITE,URINE NEGATIVE (NEGATIVE); PROTEIN,URINE 100 mg/dL (NEGATIVE); UROBILINOGEN,URINE NEGATIVE mg/dL (<2.0)
[2018-12-15] MEDS ORDERED: LIDOCAINE 1% INJ-PF (10 MG/ML) 30 ML SDV IM ONE (11:52)
[2018-12-15] MEDS ORDERED: CEFTRIAXONE INJ 250 MG VIAL IM ONE (11:52)
[2018-12-15] MEDS ORDERED: AZITHROMYCIN 250 MG TABLET PO ONE (11:52)
[2018-12-15 12:13] VITALS: BP 124/62
[2018-12-15 12:40] LABS: CHLAM PCR DETECTED (NOT DETECT)
== END 2018-12-15 12:13 | disposition home or self-care (01) ==
LOC: ER 09:54
DX: N30.90 Cystitis, unspecified without hematuria (principal); Z20.2 Contact with and (suspected) exposure to infections with a predominantly sexual mode of transmission; R30.0 Dysuria; R52 Pain, unspecified; X50.0XXA Overexertion from strenuous movement or load, initial encounter; Y93.89 Activity, other specified; Y92.481 Parking lot as the place of occurrence of the external cause; J45.909 Unspecified asthma, uncomplicated; F17.200 Nicotine dependence, unspecified, uncomplicated
CPT/HCPCS: 87210; 81001; 87491; 87591; 73610; J3490; J0696; 96374; 96375; 99283

== ENCOUNTER 2019-05-28 23:40 | Emergency (ER) | payer SELFPAY ==
[2019-05-28 23:47] VITALS: BP 150/85
--- NOTE | 2019-05-29 00:02 | ER Document Report ---
ED Medical Screen (RME) - General Chief Complaint: Low Back Pain Stated Complaint: LOWER BACK PAIN, RIGHT FLANK PAIN Time Seen by Provider: 05/28/19 23:56 Notes: Patient is a 28-year-old female who presents to the emergency department with a chief complaint of bilateral flank pain, but mostly on the right. Patient's pain started about 3 to 4 days ago. Patient does admit that she is more than 20 days late on her menstrual cycle. She also has abdominal pain to her bilateral sides of her abdomen. Exam: Bilateral CVA tenderness. I have greeted and performed a rapid initial assessment of this patient. A comprehensive ED assessment and evaluation of the patient, analysis of test results and completion of medical decision making process will be conducted by an additional ED providers. TRAVEL OUTSIDE OF THE [place] IN LAST 30 DAYS: No - Related Data Allergies/Adverse Reactions: Coconut * [Coconut] Allergy (Intermediate, Verified 04/20/18 12:18) HIVES/MOUTH SWELLING. Sulfa (Sulfonamide Antibiotics) Allergy (Verified 04/20/18 12:18) Past Medical History Pulmonary Medical History: Reports: Hx Asthma Renal/ Medical History: Reports: Hx Ectopic . Denies: Hx Peritoneal Dialysis Musculoskeltal Medical History: Reports Hx Arthritis, Reports Hx Musculoskeletal Trauma Traumatic Medical History: Reports: Hx Fractures - Arm Past Surgical History: Reports: Hx Gynecologic Surgery - etopic , Hx Oral Surgery, Hx Tonsillectomy - - Immunizations Immunizations up to date: Yes Hx Diphtheria, Pertussis, Tetanus Vaccination: Yes Physical Exam - Vital signs Vitals: Temp Pulse Resp BP Pulse Ox 97.9 F 86 16 150/85 H 98 05/28/19 23:45 05/28/19 23:45 05/28/19 23:45 05/28/19 23:45 05/28/19 23:45 Course - Vital Signs Vital signs: Temp Pulse Resp BP Pulse Ox 97.9 F 86 16 150/85 H 98 05/28/19 23:45 05/28/19 23:45 05/28/19 23:45 05/28/19 23:45 05/28/19 23:45
[2019-05-29 00:28] LABS: APPEARANCE,URINE CLOUDY; BILIRUBIN,URINE NEGATIVE (NEGATIVE); COLOR,URINE AMBER; GLUCOSE, URINE NEGATIVE (NEGATIVE); KETONES,URINE TRACE mg/dL (NEGATIVE); LEUKOCYTE ESTERASE,URINE LARGE (NEGATIVE); NITRITE,URINE NEGATIVE (NEGATIVE); PROTEIN,URINE 30 mg/dL (NEGATIVE); URINE SPECIFIC GRAVITY 1.031
--- NOTE | 2019-05-29 00:29 | ER Document Report ---
ED General - General Chief Complaint: Flank Pain Stated Complaint: LOWER BACK PAIN, RIGHT FLANK PAIN Time Seen by Provider: 05/28/19 23:56 Mode of Arrival: Ambulatory Information source: Patient Notes: 28-year-old female presents emergency department with complaints of bilateral flank pain for the past 3 to 4 days. She reports today it was worse. She denies fever vomiting diarrhea. She reports she is eating drinking as normal. She reports in fact has been eating more. She denies urinary frequency. Denies pain with void. Denies vaginal discharge denies vaginal bleeding. Patient re ports that she is approximately 20 days late for her menses. TRAVEL OUTSIDE OF THE [place] IN LAST 30 DAYS: No - HPI Onset: Other Onset/Duration: Persistent Quality of pain: Achy Associated symptoms: None Exacerbated by: Denies Relieved by: Denies Similar symptoms previously: No Recently seen / treated by doctor: No - Related Data Allergies/Adverse Reactions: Coconut * [Coconut] Allergy (Intermediate, Verified 04/20/18 12:18) HIVES/MOUTH SWELLING. Sulfa (Sulfonamide Antibiotics) Allergy (Verified 04/20/18 12:18) Past Medical History - General Information source: Patient Last Menstrual Period: 20 days late - Social History Smoking Status: Current Every Day Smoker Chew tobacco use (# tins/day): No Frequency of alcohol use: None Drug Abuse: None Family History: Reviewed & Not Pertinent Patient has suicidal ideation: No Patient has homicidal ideation: No Pulmonary Medical History: Reports: Hx Asthma Renal/ Medical History: Reports: Hx Ectopic . Denies: Hx Peritoneal Dialysis Musculoskeletal Medical History: Reports Hx Arthritis, Reports Hx Musculoskeletal Trauma Traumatic Medical History: Reports: Hx Fractures - Arm Past Surgical History: Reports: Hx Gynecologic Surgery - etopic , Hx Oral Surgery, Hx Tonsillectomy - -2009 - Immunizations Immunizations up to date: Yes Hx Diphtheria, Pertussis, Tetanus Vaccination: Yes Review of Systems - Review of Systems Notes: Review HPI for review of systems., All other systems negative Physical Exam - Vital signs Vitals: Temp Pulse Resp BP Pulse Ox 97.9 F 86 16 150/85 H 98 05/28/19 23:45 05/28/19 23:45 05/28/19 23:45 05/28/19 23:45 05/28/19 23:45 - Notes Notes: PHYSICAL EXAMINATION: GENERAL: Well-appearing and in no acute distress HEAD: Atraumatic, normocephalic. EYES: Pupils equal round and reactive to light, extraocular movements intact, sclera anicteric, conjunctiva are normal. ENT: nares patent, oropharynx clear without exudates. Moist mucous membranes. NECK: Normal range of motion, supple without lymphadenopathy LUNGS: CTAB and equal. No wheezes rales or rhonchi. HEART: Regular rate and rhythm without murmurs ABDOMEN: Soft, RLQ tenderness. No guarding, no rebound, Morbidly obese BACK: C/O low back pain, no c/o pain with palpation to cynthia CVA EXTREMITIES: Normal range of motion, NEUROLOGICAL: Cranial nerves grossly intact. Normal sensory/motor exams. PSYCH: Normal mood, normal affect. SKIN: Warm, Dry, normal turgor, no rashes or lesions noted Course - Re-evaluation Re-evalutation: 05/29/19 01:18 28-year-old female presents emergency department with complaints of bilateral flank pain. Upon assessment patient is complaining of lower back pain. She reports the right side hurts more so than left. She also reports the pain radiates to her right lower quad. Denies fever vomiting diarrhea. Reports she is 20 days late for her menses. She reports her appetite has increased. Labs unremarkable. CT was negative for kidney stones. Patient instructed on all results. Instructed on UTI. Instructed on Macrobid Tylenol Motrin for pain push fluids. She was also instructed to return for worsening symptoms fever concerns. She verbalized understanding to all instructions. Abdomen/Pelvis CT 05/29/19 01:45 IMPRESSION: No acute intra-abdominal/pelvic process TECHNICAL DOCUMENTATION: Quality ID # 436: Final reports with documentation of one or more dose reduction techniques (e.g., Automated exposure control, adjustment of the mA and/or kV according to patient size, use of iterative reconstruction technique) copyright 2011 [employer]- All Rights Reserved Laboratory 05/28/19 05/29/19 05/29/19 23:58 00:36 00:36 WBC 9.2 RBC 4.71 Hgb 14.6 Hct 41.4 MCV 88 MCH 31.1 MCHC 35.3 RDW 12.4 Plt Count 284 Lymph % (Auto) 36.5 Mobile % (Auto) 4.9 Eos % (Auto) 3.0 Baso % (Auto) 0.5 Absolute Neuts (auto) 5.0 Absolute Lymphs (auto) 3.3 Absolute Monos (auto) 0.4 Absolute Eos (auto) 0.3 Absolute Basos (auto) 0.0 Seg Neutrophils % 55.1 Serum HCG, Qual NEGATIVE Urine Color JEFF Urine Appearance CLOUDY Urine pH 5.0 Ur Specific [place] 1.031 Urine Protein 30 H Urine Glucose (UA) NEGATIVE Urine Ketones TRACE H Urine Blood LARGE H Urine Nitrite NEGATIVE Urine Bilirubin NEGATIVE Urine Urobilinogen 2.0 H Ur Leukocyte Esterase LARGE H Urine WBC (Auto) >182 Urine RBC (Auto) 94 U Hyaline Cast (Auto) 3 Urine Bacteria (Auto) 3+ Urine WBC Clumps FEW Squamous Epi Cells Auto 8 Urine Mucus (Auto) MOD Urine Ascorbic Acid NEGATIVE 05/29/19 03:08 - Vital Signs Vital signs: Temp Pulse Resp BP Pulse Ox 97.9 F 86 16 150/85 H 98 05/28/19 23:45 05/28/19 23:45 05/28/19 23:45 05/28/19 23:45 05/28/19 23:45 - Laboratory Result Diagrams: 05/29/19 00:36 05/29/19 00:36 Laboratory results interpreted by me: 05/28/19 23:58 Urine Protein 30 H Urine Ketones TRACE H Urine Blood LARGE H Urine Urobilinogen 2.0 H Ur Leukocyte Esterase LARGE H - Diagnostic Test Radiology reviewed: Image reviewed, Reports reviewed Discharge - Discharge Clinical Impression: Flank pain UTI (urinary tract infection) Qualifiers: Urinary tract infection type: site unspecified Hematuria presence: with hematuria Qualified Code(s): N39.0 - Urinary tract infection, site not specified Condition: Stable Disposition: HOME, SELF-CARE Instructions: Nitrofurantoin ([facility]), Urinary Tract Infection ([facility]) Additional Instructions: *You have been evaluated for flank pain, UTI *Take medication as prescribed *Push fluids, monitor your temperature *Follow up with your primary care provider within one week for recheck *Take tylenol as indicated for pain *Return to ED for worsening condition, changes, needs, fever, increased pain, concerns Monitor your blood pressure. Your blood pressure was elevated today. This may be because you were anxious, in pain or because you need medication. It is important to follow up with your primary care provider for full evaluation. Prescriptions: Nitrofurantoin Monohyd/M-Cryst [Macrobid 100 mg Capsule] 100 mg PO BID #20 cap Forms: Elevated Blood Pressure
[2019-05-29 00:44] LABS: ABSOLUTE EOSINOPHILS # (AUTO) 0.3 10^3/uL (0.0-0.6); ABSOLUTE LYMPHOCYTES (AUTO) 3.3 10^3/uL (0.5-4.7); ABSOLUTE MONOCYTES (AUTO) 0.4 10^3/uL (0.1-1.4); BASOPHILS % (AUTO) 0.5 % (0-2); HEMATOCRIT 41.4 % (36.0-47.0); HEMOGLOBIN 14.6 g/dL (12.0-15.5); LYMPHOCYTES % (AUTO) 36.5 % (13-45); MEAN CORPUSCULAR HEMOGLOBIN 31.1 pg (27.0-33.4); MEAN CORPUSCULAR HGB CONC 35.3 g/dL (32.0-36.0); MEAN CORPUSCULAR VOLUME 88 fl (80-97); MONOCYTES % (AUTO) 4.9 % (3-13); PLATELET COUNT 284 10^3/uL (150-450); RED BLOOD COUNT 4.71 10^6/uL (3.72-5.28); RED CELL DISTRIBUTION WIDTH 12.4 % (11.5-14.0); SEGMENTED NEUTROPHILS % (AUTO) 55.1 % (42-78); TOTAL CELLS COUNTED % (AUTO) 100 %; WHITE BLOOD COUNT 9.2 10^3/uL (4.0-10.5)
[2019-05-29 01:04] LABS: ALBUMIN 4.1 g/dL (3.5-5.0); ALKALINE PHOSPHATASE 72 U/L (38-126); ANION GAP 10 (5-19); ASPARTATE AMINO TRANSFERASE 20 U/L (14-36); BILIRUBIN,DIRECT 0.1 mg/dL (0.0-0.4); BLOOD UREA NITROGEN 19 mg/dL (7-20); CALCIUM 9.5 mg/dL (8.4-10.2); CARBON DIOXIDE 26 mmol/L (22-30); CHLORIDE 103 mmol/L (98-107); GLUCOSE 92 mg/dL (75-110); POTASSIUM 4.1 mmol/L (3.6-5.0); TOTAL PROTEIN 7.4 g/dL (6.3-8.2)
--- NOTE | 2019-05-29 02:59 | RADIOLOGY REPORT (SQ) ---
EXAM DESCRIPTION: CT ABDOMEN PELVIS WITHOUT IV CONTRAST COMPLETED DATE/TME: 05/29/2019 01:45 CLINICAL HISTORY: 28 years, Female, Bilat flank pain hx kidney stones, hcg neg. COMPARISON: 06/21/2017 CT TECHNIQUE: 422 Images stored on PACS. All CT scanners at this facility use dose modulation, iterative reconstruction, and/or weight based dosing when appropriate to reduce radiation dose to as low as reasonably achievable (ALARA). [facility]: Dose Right [facility]: CareDose [facility]: Dose Right [facility]: Teradose 4D [facility]: [employer] LIMITATIONS: None. FINDINGS: The visualized lung bases are unremarkable. Osseous structures are grossly intact. The liver, spleen, adrenal glands, pancreas, kidneys are unremarkable. The gallbladder is present. There is no evidence for bowel obstruction. No free air or free fluid. Appendix is not well seen. No pericecal inflammation. Negative for urinary tract calculus or hydronephrosis IMPRESSION: No acute intra-abdominal/pelvic process TECHNICAL DOCUMENTATION: Quality ID # 436: Final reports with documentation of one or more dose reduction techniques (e.g., Automated exposure control, adjustment of the mA and/or kV according to patient size, use of iterative reconstruction technique) copyright 2010 [employer]- All Rights Reserved
[2019-05-29] MEDS ORDERED: NITROFURANTOIN MONOHYD/M-CRYST 100 MG CAPSULE PO ONE (03:03)
[2019-05-29] MEDS ORDERED: IBUPROFEN 800 MG TABLET PO ONE (03:08)
== END 2019-05-29 03:15 | disposition home or self-care (01) ==
LOC: ER 23:40
DX: N39.0 Urinary tract infection, site not specified (principal); R31.9 Hematuria, unspecified; M54.5 Low back pain; R10.9 Unspecified abdominal pain; R10.813 Right lower quadrant abdominal tenderness; N92.6 Irregular menstruation, unspecified; F17.200 Nicotine dependence, unspecified, uncomplicated; J45.909 Unspecified asthma, uncomplicated; Z91.018 Allergy to other foods; Z88.2 Allergy status to sulfonamides
CPT/HCPCS: 99284; 36415; 84702; 83690; 84703; 85025; 80053; 81001; 74176; J8499

== ENCOUNTER 2019-09-01 18:39 | Emergency (ER) | payer SELFPAY ==
--- NOTE | 2019-09-01 18:55 | ER Document Report ---
HPI - HPI Patient complains to provider of: Urinary frequency and burning Time Seen by Provider: 09/01/19 18:54 Onset: Just prior to arrival Associated Symptoms: None Exacerbated by: Denies Relieved by: Denies - REPRODUCTIVE Reproductive: DENIES: : Past Medical History - General Information source: Patient - Social History Smoking Status: Current Every Day Smoker Cigarette use (# per day): No Chew tobacco use (# tins/day): No Smoking Education Provided: No Frequency of alcohol use: None Drug Abuse: None Family History: Reviewed & Not Pertinent Pulmonary Medical History: Reports: Hx Asthma Renal/ Medical History: Reports: Hx Ectopic . Denies: Hx Peritoneal Dialysis Musculoskeletal Medical History: Reports Hx Arthritis, Reports Hx Musculoskeletal Trauma Traumatic Medical History: Reports: Hx Fractures - Arm Past Surgical History: Reports: Hx Gynecologic Surgery - etopic , Hx Oral Surgery, Hx Tonsillectomy - - Immunizations Immunizations up to date: Yes Hx Diphtheria, Pertussis, Tetanus Vaccination: Yes Vertical Provider Document - CONSTITUTIONAL Agree With Documented VS: Yes - INFECTION CONTROL TRAVEL OUTSIDE OF THE [place] IN LAST 30 DAYS: No - HEENT HEENT: Atraumatic, Conjuctival Injection, Normocephalic, PERRLA - NECK Neck: Normal Inspection - RESPIRATORY Respiratory: Breath Sounds Normal, No Respiratory Distress - CARDIOVASCULAR Cardiovascular: Regular Rate, Regular Rhythm - GI/ABDOMEN Gastrointestinal: Abdomen Soft, Abdomen Non-Tender - REPRODUCTIVE Female Genitalia: Normal Inspection Course - Re-evaluation Re-evalutation: 09/01/19 19:24 No nausea no vomiting patient is able to hold down p.o. food and fluid no CVA tenderness - Vital Signs Vital signs: Temp Pulse Resp BP Pulse Ox 98.5 F 88 20 104/75 97 09/01/19 18:45 09/01/19 18:45 09/01/19 18:45 09/01/19 18:45 09/01/19 18:45 - Laboratory Laboratory results interpreted by me: 09/01/19 19:24 Labs- All tests 24 hr 09/01/19 19:00 Urine Color YELLOW Urine Appearance CLOUDY Urine pH 5.0 Ur Specific [place] 1.018 Urine Protein 100 H Urine Glucose (UA) NEGATIVE Urine Ketones NEGATIVE Urine Blood LARGE H Urine Nitrite NEGATIVE Urine Bilirubin NEGATIVE Urine Urobilinogen NEGATIVE Ur Leukocyte Esterase LARGE H Urine WBC (Auto) >182 Urine RBC (Auto) >182 Urine Bacteria (Auto) 1+ Squamous Epi Cells Auto 7 Urine Mucus (Auto) RARE Urine Ascorbic Acid NEGATIVE Urine HCG, Qual NEGATIVE Discharge - Discharge Clinical Impression: UTI (urinary tract infection) Qualifiers: Urinary tract infection type: acute pyelonephritis Qualified Code(s): N10 - Acute pyelonephritis Disposition: HOME, SELF-CARE Instructions: Urinary Anesthetic Agent ([facility]), Urinary Tract Infection ([facility]) Prescriptions: Amoxicillin/Potassium Clav [Augmentin 875-125 Tablet] 1 tab PO Q12 #20 tablet Phenazopyridine HCl [Pyridium 200 mg Tablet] 200 mg PO TID #15 tablet
[2019-09-01 19:07] LABS: APPEARANCE,URINE CLOUDY; BILIRUBIN,URINE NEGATIVE (NEGATIVE); COLOR,URINE YELLOW; GLUCOSE, URINE NEGATIVE (NEGATIVE); KETONES,URINE NEGATIVE (NEGATIVE); LEUKOCYTE ESTERASE,URINE LARGE (NEGATIVE); NITRITE,URINE NEGATIVE (NEGATIVE); PROTEIN,URINE 100 mg/dL (NEGATIVE); URINE SPECIFIC GRAVITY 1.018; UROBILINOGEN,URINE NEGATIVE mg/dL (<2.0)
[2019-09-01] MEDS ORDERED: LIDOCAINE 1% INJ-PF (10 MG/ML) 30 ML SDV NEB ONE (19:23)
[2019-09-01] MEDS ORDERED: CEFTRIAXONE INJ 1000 MG VIAL IM ONE (19:23)
[2019-09-01] MEDS ORDERED: PHENAZOPYRIDINE HCL 200 MG TABLET PO ONE (19:23)
[2019-09-01 21:11] VITALS: BP 161/91
== END 2019-09-01 20:30 | disposition home or self-care (01) ==
LOC: ER 18:39
DX: N10 Acute pyelonephritis (principal); F17.200 Nicotine dependence, unspecified, uncomplicated; J45.909 Unspecified asthma, uncomplicated
CPT/HCPCS: 94640; 99283; 96372; 81025; 81001; J3490 ×2; J0696

== ENCOUNTER 2019-10-31 18:46 | Emergency (ER) | payer SELFPAY ==
--- NOTE | 2019-10-31 19:40 | ER Document Report ---
ED Medical Screen (RME) - General Chief Complaint: Nausea Stated Complaint: NAUSEA Notes: Patient is a 29-year-old white female with no reported past medical history who presents to the emergency department the chief complaint of runny nose and shortness of breath that began a couple days ago. States this been associated with some nausea and one episode of vomiting. States the nausea is the worst. She is unsure of her last normal menstrual cycle. States that her boyfriend told her that his grandmother was positive for COVID-19. She is unsure if the boyfriend has been around the grandmother or not. She denies any known fevers. Reports she felt hot yesterday but states she did not have a thermometer to record her temperature. I have treated and performed a rapid initial assessment of this patient. A comprehensive ED assessment and evaluation of the patient, analysis of test results and completion of medical decision making process will be conducted by additional ED providers. PHYSICAL EXAMINATION: GENERAL: Well-appearing, well-nourished and in no acute distress. A&Ox4. Answers questions appropriately. TRAVEL OUTSIDE OF THE [place] IN LAST 30 DAYS: No - Related Data Allergies/Adverse Reactions: Coconut * [Coconut] Allergy (Intermediate, Verified 04/20/18 12:18) HIVES/MOUTH SWELLING. Sulfa (Sulfonamide Antibiotics) Allergy (Verified 04/20/18 12:18) Past Medical History Pulmonary Medical History: Reports: Hx Asthma Renal/ Medical History: Reports: Hx Ectopic . Denies: Hx Peritoneal Dialysis Musculoskeltal Medical History: Reports Hx Arthritis, Reports Hx Musculoskeletal Trauma Traumatic Medical History: Reports: Hx Fractures - Arm Past Surgical History: Reports: Hx Gynecologic Surgery - etopic , Hx Oral Surgery, Hx Tonsillectomy - - Immunizations Immunizations up to date: Yes Hx Diphtheria, Pertussis, Tetanus Vaccination: Yes Physical Exam - Vital signs Vitals: Temp Pulse Resp BP Pulse Ox 98.8 F 72 22 H 149/68 H 100 10/31/19 18:53 10/31/19 18:53 10/31/19 18:53 10/31/19 18:53 10/31/19 18:53 Course - Vital Signs Vital signs: Temp Pulse Resp BP Pulse Ox 98.8 F 72 22 H 149/68 H 100 10/31/19 18:53 10/31/19 18:53 10/31/19 18:53 10/31/19 18:53 10/31/19 18:53
--- NOTE | 2019-10-31 20:49 | RADIOLOGY REPORT (SQ) ---
EXAM DESCRIPTION: XR CHEST 1 VIEW COMPLETED DATE/TME: 10/31/2019 19:39 CLINICAL HISTORY: 29 years Female sob COMPARISON: 6-15. FINDINGS: The cardiomediastinal silhouette appears unremarkable. No consolidating infiltrates or pleural effusions. No pneumothorax. IMPRESSION: No acute abnormality is identified.
[2019-10-31] MEDS ORDERED: ONDANSETRON 4 MG TAB.RAPDIS PO ONE (20:54)
[2019-10-31] MEDS ORDERED: IPRATROPIUM/ALBUTEROL 0.5-2.5 MG/3 ML AMPUL NEB ONE (20:54)
--- NOTE | 2019-10-31 20:55 | ER Document Report ---
ED General - General Chief Complaint: Nausea Stated Complaint: NAUSEA Time Seen by Provider: 10/31/19 20:41 Notes: Patient is a 29-year-old female that comes emergency department for chief complaint of runny nose, cough, shortness of breath, wheezing, and intermittent nausea. She states that she also vomited yesterday. Symptoms started about 3 days ago. She states she was exposed to her boyfriend who his grandmother was positive for COVID-19. She is unsure if her boyfriend was directly exposed to that however. She states she felt feverish yesterday but she has no recorded fevers. She denies abdominal pain, chest pain, dizziness, sore throat, difficulty swallowing, headache. She smokes intermittently, denies history of asthma or COPD, denies recreational drugs. She also states that she might be . TRAVEL OUTSIDE OF THE [place] IN LAST 30 DAYS: No - Related Data Allergies/Adverse Reactions: Coconut * [Coconut] Allergy (Intermediate, Verified 04/20/18 12:18) HIVES/MOUTH SWELLING. Sulfa (Sulfonamide Antibiotics) Allergy (Verified 04/20/18 12:18) Past Medical History - General Information source: Patient - Social History Smoking Status: Current Every Day Smoker Smoking Education Provided: Yes - <3 min Frequency of alcohol use: None Drug Abuse: None Lives with: Family Family History: Reviewed & Not Pertinent Renal/ Medical History: Reports: Hx Ectopic . Denies: Hx Peritoneal Dialysis Musculoskeletal Medical History: Reports Hx Arthritis, Reports Hx Musculoskeletal Trauma Traumatic Medical History: Reports: Hx Fractures - Arm Past Surgical History: Reports: Hx Gynecologic Surgery - etopic , Hx Oral Surgery, Hx Tonsillectomy - 2-2009 - Immunizations Immunizations up to date: Yes Hx Diphtheria, Pertussis, Tetanus Vaccination: Yes Review of Systems - Review of Systems Constitutional: See HPI EENT: See HPI Cardiovascular: No symptoms reported Respiratory: See HPI Gastrointestinal: See HPI Genitourinary: No symptoms reported Female Genitourinary: No symptoms reported Musculoskeletal: No symptoms reported Skin: No symptoms reported Hematologic/Lymphatic: No symptoms reported Neurological/Psychological: No symptoms reported Physical Exam - Vital signs Vitals: Temp Pulse Resp BP Pulse Ox 98.8 F 72 22 H 149/68 H 100 10/31/19 18:53 10/31/19 18:53 10/31/19 18:53 10/31/19 18:53 10/31/19 18:53 - Notes Notes: GENERAL: Alert, interacts well. No acute distress. Talkative and well- appearing. Patient is very obese. HEAD: Normocephalic, atraumatic. EYES: Pupils equal, round, and reactive to light. Extraocular movements intact. ENT: Oral mucosa moist, tongue midline. Oropharynx with very minimal erythema and postnasal drip, status post tonsillectomy. Airway patent. Nares patent but have some noted congestion and rhinorrhea, sinuses non-tender, ear canals unremarkable, TM's intact. NECK: Full range of motion. Supple. Trachea midline. No lymphadenopathy. LUNGS: There are faint scattered expiratory wheezes but otherwise clear lung sounds. No rales or rhonchi. No tachypnea, respiratory distress, or labored breathing. Patient speaks in full sentences. HEART: Regular rate and rhythm. No murmur ABDOMEN: Soft, non-tender. Non-distended. EXTREMITIES: Moves all 4 extremities spontaneously. No edema, normal radial and dorsalis pedis pulses bilaterally. No cyanosis. BACK: no cervical, thoracic, lumbar midline tenderness. No saddle anesthesia, normal distal neurovascular exam. Moves all extremities in full range of motion. NEUROLOGICAL: Alert and oriented x3. Normal speech. Cranial nerves II through XII grossly intact. Strength 5/5 in all extremities. PSYCH: Normal affect, normal mood. SKIN: Warm, dry, normal turgor. No rashes or lesions noted. Course - Re-evaluation Re-evalutation: Patient with expiratory wheezes on exam but no respiratory distress, hypoxia, or concerning findings otherwise. Patient has mild rhinorrhea and postnasal drip. Vital signs unremarkable. Chest x-ray and test from triage reviewed and unremarkable. Patient with potential exposures to COVID-19. Discussed options. Patient will be tested for COVID-19, provided with inhaler, spacer, albuterol, nausea medication as needed. Discussed smoking cessation. Discussed return precautions in detail. Patient states appreciation and agreement. Stable and well-appearing at time of discharge. - Vital Signs Vital signs: Temp Pulse Resp BP Pulse Ox 98.5 F 72 21 H 129/84 H 100 10/31/19 23:01 10/31/19 18:53 10/31/19 23:01 10/31/19 23:01 10/31/19 23:01 Discharge - Discharge Clinical Impression: Wheezing, Cough, Sinus congestion, Subjective fever, Person under investigation for COVID-19 Condition: Stable Disposition: HOME, SELF-CARE Additional Instructions: Your chest x-ray does not show pneumonia, your test negative. Your evaluation is consistent with a viral illness and bronchitis causing your wheezing. You have been treated with Decadron tonight, use the inhaler and spacer provided, you can also take [id number] medications if needed for symptoms. Take Phenergan if needed for nausea. Drink plenty of fluids and rest. Symptoms should simply resolve. Quarantine as we discussed, see additional instructions listed below, you will be contacted with the results. Return if you develop any concerning symptoms including difficulty breathing, spiking fevers, vomiting, passing out, or any other concerning or worsening symptoms. As a person under investigation for COVID-19, the [place] Department of Health and Human Services (division on public health) advises you to adhere to the following guidance until your test results are reported to you. If your test result is positive, you will receive additional information from your provider and your local health department at that time. Remain at home until you are cleared by the health provider or public health authorities. Keep a log of visitors to your home, notify any visitors to your home of your isolation status. If you plan to move to a new address or leave the [facility], notify the local health department in your [facility]. Call your Doctor or seek care if you have an urgent medical need. Before seeking medical care, call him to get instructions from the provider before arriving at the medical office, clinic, or hospital. Notify them that you are being tested for the virus (COVID-19) so that arrangements can be made, as necessary, to prevent transmission to others in the healthcare setting. Next, notify the local health department in your county. If a medical emergency arises and you need to call 911, inform the first responders that you are being tested for the virus that causes COVID-19. Next, notify the local health department in your county. Prescriptions: Promethazine HCl [Phenergan 25 mg Tablet] 25 mg PO Q6H PRN #15 tablet PRN Reason: Albuterol Sulfate [Proair HFA Inhalation Aerosol 8.5 gm MDI] 2 puff IH Q4H PRN #1 mdi PRN Reason: Forms: Return to Work
[2019-10-31] MEDS ORDERED: DEXAMETHASONE SOD PHOS INJ 10 MG/1 ML VIAL IM ONE (22:36)
[2019-10-31] MEDS ORDERED: ALBUTEROL SULFATE HFA (90 MCG/PUFF) 8 GM MDI IH ONE (22:36)
[2019-10-31] MEDS ORDERED: DEXAMETHASONE SOD PHOS INJ 10 MG/1 ML VIAL ONE (22:58)
[2019-10-31 23:20] VITALS: BP 129/84
== END 2019-10-31 23:24 | disposition home or self-care (01) ==
LOC: ER 18:46
DX: R50.9 Fever, unspecified (principal); R09.81 Nasal congestion; R05 Cough; R06.2 Wheezing; R11.2 Nausea with vomiting, unspecified; R09.89 Other specified symptoms and signs involving the circulatory and respiratory systems; R06.02 Shortness of breath; Z88.2 Allergy status to sulfonamides; Z20.828 Contact with and (suspected) exposure to other viral communicable diseases; F17.210 Nicotine dependence, cigarettes, uncomplicated; Z71.6 Tobacco abuse counseling
CPT/HCPCS: 99406; 94640; 99283; 96372; 87635; 81025; 71045; S0119; J1100; J3490; C9803

== ENCOUNTER 2019-12-17 07:55 | Emergency (ER) | payer SELFPAY ==
--- NOTE | 2019-12-17 09:29 | RADIOLOGY REPORT (SQ) ---
EXAM DESCRIPTION: KNEE LEFT 4 VIEW IMAGES COMPLETED DATE/TIME: 12/17/2019 9:09 am REASON FOR STUDY: pain COMPARISON: None. NUMBER OF VIEWS: Four views. TECHNIQUE: AP, lateral, and both oblique radiographic images acquired of the left knee. LIMITATIONS: None. FINDINGS: MINERALIZATION: Normal. BONES: No acute fracture or dislocation. No worrisome bone lesions. JOINT: No effusion. SOFT TISSUES: A few small well corticated ossific densities in the anterior subcutaneous tissues pro ximal left lower extremity may be related prior remote injury. No soft tissue swelling. OTHER: No other significant finding. IMPRESSION: 1. No acute osseous findings. TECHNICAL DOCUMENTATION: JOB ID: [id number] 2010 [employer]- All Rights Reserved Reading location - IP/workstation name: [email or web address]
[2019-12-17 11:04] LABS: BACTERIA (WET MOUNT) 3+ BACTERIA SEEN; RBCS (WET MOUNT) 3+ RBCS SEEN; YEAST (WET MOUNT) NO YEAST SEEN
[2019-12-17 11:05] LABS: EPITHELIALS (WET MOUNT) 3+ EPITHELIALS SEEN; T.VAGINALIS (WET MOUNT) TRICHOMONAS SEEN
[2019-12-17 11:06] LABS: WBCS (WET MOUNT) 1+ WBCS SEEN
[2019-12-17 11:10] LABS: APPEARANCE,URINE CLOUDY; BILIRUBIN,URINE NEGATIVE (NEGATIVE); COLOR,URINE YELLOW; GLUCOSE, URINE NEGATIVE (NEGATIVE); KETONES,URINE NEGATIVE (NEGATIVE); PROTEIN,URINE 30 mg/dL (NEGATIVE); URINE SPECIFIC GRAVITY 1.027; UROBILINOGEN,URINE NEGATIVE mg/dL (<2.0)
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
[2019-12-17] MEDS ORDERED: CEFTRIAXONE INJ 250 MG VIAL IM ONE (11:52)
[2019-12-17] MEDS ORDERED: LIDOCAINE 1% INJ-PF (10 MG/ML) 30 ML SDV ONE (12:05)
[2019-12-17 12:12] VITALS: BP 109/64
[2019-12-17 12:38] LABS: CHLAM PCR NOT DETECTED (NOT DETECT)
== END 2019-12-17 12:29 | disposition home or self-care (01) ==
LOC: ER 07:55
DX: S80.02XA Contusion of left knee, initial encounter (principal); Y04.0XXA Assault by unarmed brawl or fight, initial encounter; A59.01 Trichomonal vulvovaginitis; F17.200 Nicotine dependence, unspecified, uncomplicated; J45.909 Unspecified asthma, uncomplicated; Z91.018 Allergy to other foods; Z88.2 Allergy status to sulfonamides
CPT/HCPCS: 99284; 96372; 87210; 81025; 81001; 87491; 87591; 73564; J3490; J0696

== ENCOUNTER 2020-02-25 21:03 | Emergency (ER) | payer SELFPAY ==
[2020-02-25] MEDS ORDERED: NAPROXEN 250 MG TABLET PO ONE (22:05)
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
--- NOTE | 2020-02-25 22:57 | RADIOLOGY REPORT (SQ) ---
Left ankle x-ray three views and left foot x-ray three views on 02/25/2020 at 10:16 PM Clinical indications: Foot and ankle pain after fall COMPARISON: None FINDINGS: Left foot: Plantar calcaneal spur is noted. There are no fractures. Visualized joints are well aligned. No other bony abnormality is noted. Left ankle: The ankle mortise is intact. There are no fractures. Visualized joints are well aligned. IMPRESSION: No acute abnormality in the left ankle or left foot.
[2020-02-25 23:04] VITALS: BP 134/73
== END 2020-02-25 23:03 | disposition home or self-care (01) ==
LOC: ER 21:03
DX: S93.402A Sprain of unspecified ligament of left ankle, initial encounter (principal); S93.602A Unspecified sprain of left foot, initial encounter; W01.0XXA Fall on same level from slipping, tripping and stumbling without subsequent striking against object, initial encounter; F17.200 Nicotine dependence, unspecified, uncomplicated; J45.909 Unspecified asthma, uncomplicated
CPT/HCPCS: 99283

== ENCOUNTER 2020-03-16 15:25 | Emergency (ER) | payer SELFPAY ==
[2020-03-16 15:51] VITALS: BP 152/83
--- NOTE | 2020-03-16 16:02 | ER Document Report ---
ED General - General Chief Complaint: Rectal Pain Stated Complaint: RECTAL PAIN Time Seen by Provider: 03/16/20 15:56 Mode of Arrival: Ambulatory Information source: Patient Notes: Patient is a 21-year-old female comes in with a primary complaint of having a hemorrhoid. She stated started about 2 days ago and she has tried Preparation H without much relief. She has a history of these that usually go away with that process. She states that last 24 hours it has gotten a little more swollen and has bled occasionally when she had a bowel movement. Patient also has a secondary complaint of having a new onset rash that started this morning. She denies any changes in medications or soaps or detergents but it is on her upper extremities as well as her abdomen and chest. She denies any other past medical history and is on no current medications. Her last menstrual period she said is irregular so she does not really know. TRAVEL OUTSIDE OF THE [place] IN LAST 30 DAYS: No - HPI Onset: Other - 2 days Onset/Duration: Gradual Quality of pain: Achy, Throbbing Severity: Moderate Pain Level: 3 Exacerbated by: Other - Bowel movement Relieved by: Denies Similar symptoms previously: Yes Recently seen / treated by doctor: No - Related Data Allergies/Adverse Reactions: Coconut * [Coconut] Allergy (Intermediate, Verified 03/16/20 15:46) HIVES/MOUTH SWELLING. Sulfa (Sulfonamide Antibiotics) Allergy (Verified 03/16/20 15:46) Past Medical History - General Information source: Patient - Social History Smoking Status: Current Every Day Smoker Chew tobacco use (# tins/day): No Frequency of alcohol use: None Drug Abuse: None Lives with: Family Family History: Reviewed & Not Pertinent Patient has homicidal ideation: No Pulmonary Medical History: Reports: Hx Asthma Renal/ Medical History: Reports: Hx Ectopic . Denies: Hx Peritoneal Dialysis Musculoskeletal Medical History: Reports Hx Arthritis, Reports Hx Musculoskeletal Trauma Traumatic Medical History: Reports: Hx Fractures - Arm Past Surgical History: Reports: Hx Gynecologic Surgery - etopic , Hx Oral Surgery, Hx Tonsillectomy - - Immunizations Immunizations up to date: Yes Hx Diphtheria, Pertussis, Tetanus Vaccination: Yes Review of Systems - Review of Systems Constitutional: No symptoms reported EENT: No symptoms reported Cardiovascular: No symptoms reported Respiratory: No symptoms reported Gastrointestinal: No symptoms reported, Rectal bleeding, Other - Rectal pain Genitourinary: No symptoms reported Female Genitourinary: No symptoms reported Musculoskeletal: No symptoms reported Skin: See HPI, Rash Hematologic/Lymphatic: No symptoms reported Neurological/Psychological: No symptoms reported -: Yes All other systems reviewed and negative Physical Exam - Vital signs Vitals: Temp Pulse Resp BP Pulse Ox 97.9 F 49 L 18 152/83 H 99 03/16/20 03:45 03/16/20 03:45 03/16/20 03:45 03/16/20 03:45 03/16/20 03:45 Interpretation: Hypertensive - Notes Notes: PHYSICAL EXAMINATION: GENERAL: Well-appearing, well-nourished and in no acute distress. HEAD: Atraumatic, normocephalic. NECK: Normal range of motion, supple without lymphadenopathy LUNGS: Breath sounds clear to auscultation bilaterally and equal. No wheezes rales or rhonchi. HEART: Regular rate and rhythm without murmurs ABDOMEN: With the nurse present in the room patient dropped her pants and we examined the rectal area. Patient does have approximately a 2 cm hemorrhoid that appears to be at the sphincter area. Unable to ascertain whether it is internal or external at this time with mild engorgement there is no clot noted at this time. It appears to be approximately the 12:00 position. Female : deferred Musculoskeletal: Normal range of motion, no pitting or edema. No cyanosis. NEUROLOGICAL: . Normal speech, normal gait. Normal sensory, motor exams PSYCH: Normal mood, normal affect. SKIN: Examination patient's secondary complaint on the rash does show she has a systemic rash in the upper extremities and trunk and back. As well as the abdomen it is a macular rash nonspecific in origin does not appear to be sandpapery is more of the urticaria type of a presentation. Course - Re-evaluation Re-evalutation: 03/16/20 16:02 Given the location and size of the hemorrhoid I discussed with patient her options we can try outpatient with Anusol HC and sitz bath's which she is elected to do I did offer to do a incision of that hemorrhoid but patient does not want that at this time. As far as the rash goes we are unable to ascertain what is causing this but does appear to be a allergic type reaction. We will go ahead and place her on a steroid taper and some Pepcid. Patient's been struck to come back if should she have any concerns or problems. - Vital Signs Vital signs: Temp Pulse Resp BP Pulse Ox 97.9 F 49 L 18 152/83 H 99 03/16/20 03:45 03/16/20 03:45 03/16/20 03:45 03/16/20 03:45 03/16/20 03:45 - Laboratory Results Critical Laboratory Results Reviewed: No Critical Results - Radiology Results Critical Radiology Results Reviewed: No Critical Results Discharge - Discharge Clinical Impression: Hemorrhoid Qualifiers: Hemorrhoid type: unspecified Qualified Code(s): K64.9 - Unspecified hemorrhoids Allergic reaction Qualifiers: Encounter type: initial encounter Qualified Code(s): T78.40XA - Allergy, unspecified, initial encounter Condition: Stable Disposition: HOME, SELF-CARE Instructions: Hemorrhoids ([facility]), HC Hemorrhoid Cream ([facility]), Acute Allergic R eaction ([facility]) Additional Instructions: As we discussed you can attempt to use these suppositories and the cream for your hemorrhoid. Should it get any bigger or more painful return to ER for us to open it up. Highly suggest follow-up with the surgical person for evaluation and possible removal of the hemorrhoids. As for the rash I cannot say what you are reacting to however take the medication as prescribed you can also take Benadryl 50 mg every 6 hours for any itching that may occur. Should you have any increasing shortness of breath or concerns return to ER for reevaluation. Also you can stop by one of the medical supply stores and get a ball for your sitz bath's. You can use warm soapy water and sit in it three times a day. Prescriptions: Hydrocortisone Acetate [Anusol Hc 25 mg Supp.rect] 1 supp.rect NM BID #14 supp.rect Hydrocortisone [Anusol-Hc] 30 gm RC TID #1 tube Prednisone [Deltasone 20 mg Tablet] 3 tab PO DAILY 5 Days tablet Prednisone 10 mg PO ASDIR 6 Days #1 tab.ds.pk Forms: Elevated Blood Pressure, Smoking Cessation Education, Return to Work
== END 2020-03-16 16:21 | disposition home or self-care (01) ==
LOC: ER 15:25
DX: K64.9 Unspecified hemorrhoids (principal); K62.89 Other specified diseases of anus and rectum; T78.40XA Allergy, unspecified, initial encounter; F17.200 Nicotine dependence, unspecified, uncomplicated
CPT/HCPCS: 99283